=== PATIENT | male | born 1965 | race Caucasian/White ===

== ENCOUNTER 2024-03-03 13:23 | Emergency (ER) | payer BC, OTHER ==
[2024-03-03 14:24] VITALS: BP 127/91; PULSE 77; RESP 20; TEMP 99; BMI 27.8
[2024-03-03 15:11] LABS: HEMATOCRIT 45.7 % (35.4-49); HEMOGLOBIN 15.2 G/dL (11.7-16.9); MCH 31.1 pg (25.7-33.7); MCHC 33.2 g/dl (32.0-35.9); MEAN CELL VOLUME 93.9 fl (80-96); MEAN PLT VOLUME 9.6 fl (7.5-11.1); PLATELET COUNT 177.8 10^3/uL (134-434); RBC 4.87 10^6/uL (4.00-5.60); RDW 13.4 % (11.9-15.9)
[2024-03-03 15:14] LABS: ALBUMIN 4.3 g/dl (3.4-5.0); BILIRUBIN,TOTAL 0.5 mg/dl (0.2-1); CALCIUM 9.6 mg/dl (8.5-10.1); CREATININE 0.8 mg/dl (0.6-1.3); PLATELET ESTIMATE ADEQUATE; POTASSIUM 3.9 mmol/L (3.5-5.1); TOT PROT 6.7 g/dl (6.4-8.2)
[2024-03-03] MEDS ORDERED: SULFAMETHOXAZOLE/TRIMETHOPRIM 800MG/160MG D.S. TABLET ONE (16:24)
[2024-03-03] MEDS ORDERED: CEPHALEXIN MONOHYDRATE 500 MG CAPSULE (UD) ONE (16:24)
[2024-03-03] MEDS: CEPHALEXIN MONOHYDRATE 500 MG CAPSULE (UD) PO ONE (16:25)
[2024-03-03] MEDS: SULFAMETHOXAZOLE/TRIMETHOPRIM 800MG/160MG D.S. TABLET PO ONE (16:25)
== END 2024-03-03 16:29 | disposition home or self-care (01) ==
LOC: FER 13:23
DX: S81.801A Unspecified open wound, right lower leg, initial encounter (principal); L03.115 Cellulitis of right lower limb; R60.0 Localized edema
CPT/HCPCS: 36415; 73590-TC-LT-FY; 73590-TC-RT-FY; 80053; 85027; 99284-25